=== PATIENT | female | born 1985 | race Two or more races ===

== ENCOUNTER → 2025-04-23 | Day surgery (SDC) | payer MEDICAID ==
[2025-04-22 14:14] LABS: Hemoglobin 12.3 g/dL (12.2-16.2); Nucleated Red Blood Cells % 0.1 %
[2025-04-22 14:17] LABS: Hematocrit 37.8 % (36.0-46.0); Mean Corpuscular Hemoglobin 26.5 pg (28.0-32.0); Mean Corpuscular Volume 81.2 fL (80.0-100.0)
[2025-04-22 14:30] LABS: INR 1.05 (0.9-1.15); Partial Thromboplastin Time 39.6 SEC (24.5-34.5); Prothrombin Time 11.1 sec (9.3-11.8)
[2025-04-22 14:31] LABS: Urine Protein, UAD Negative (Negative)
[2025-04-22 14:36] LABS: Alanine Aminotransferase 23 U/L (7-40); Albumin 4.4 g/dL (3.2-4.8); Alkaline Phosphatase 73 U/L (46-116); Anion Gap 9 (5-15); BUN/Creatinine Ratio 12.1 (10.0-20.0); Bilirubin, Total 0.4 mg/dL (0.2-1.0); Blood Urea Nitrogen 7 mg/dL (9-23); Calcium 9.3 mg/dL (8.7-10.4); Carbon Dioxide 26 mmol/L (20-31); Chloride 105 mmol/L (98-107); Glucose 73 mg/dL (74-106); Potassium 3.9 mmol/L (3.5-5.1); Sodium 140 mmol/L (136-145); Total Protein 7.4 g/dL (5.7-8.2)
[~2025-04-23] VITALS: Ht 152.4 cm; Wt 44.5 kg
[~2025-04-23] MED LIST: CHOL25CH3 PO; FOLI800T16 PO; HYDR-4491 PO; LIDOCAINE 2% (LOCAL ANESTH.) PF 5ml SDV ONE; PRE1T PO; PROPOFOL 10 MG/ML 20 ML IV ONE
--- NOTE | 2025-04-23 11:24 | DVHHP2 ---
GI H&P Pre-Op Assessment Date: 04/23/25 Chief complaint: Vomiting and melena HPI: per clinic note Past medical history: per clinic note Past surgical history: per clinic note Family history: per clinic note Physical exam: General: NAD, AAOX3 HEENT: PERRL, no scleral icterus, normal hearing, gums without lesions or bleeding, oropharynx clear without erythema or exudate. Neck: Supple without enlargement of the thyroid, or lymphadenopathy. Chest: Normal size and shape, no tenderness, lung bowie clear to auscultation and percussion, nonlabored breathing. Heart: RRR, no murmur Abdomen: non-distended, no tenderness to palpation, +BS, no hepatosplenomegaly Extremities: no edema Neurological: CN II-XII intact, sensation intact in all extremities, 5+ strength in all extremities Skin: No rashes, No jaundice Assessment: - Vomiting and melena Plan: - EGD - Risks (bleeding, infection, perforation, reaction to sedation medications and cardiopulmonary arrest) and benefit of the procedure were explained to patient. Patient agrees to undergo the procedure. RADU PEREZ MD Apr 23, 2025 11:24
--- NOTE | 2025-04-23 11:37 | DVHOP2 ---
Operative Report DATE OF OPERATION: 04/23/25 PROCEDURE: Upper Endoscopy. PREOPERATIVE INDICATION: The patient is a 39 -year-old female undergoing endoscopy for vomiting and melena. POSTOPERATIVE DIAGNOSES: 1. Mild gastritis. 2. Gastric erosion at the body of the stomach. PROCEDURE PERFORMED BY: Tj Velazquez SCOPE: Olympus videoendoscope. ASA CLASS: 2 PREOPERATIVE MEDICATIONS: MAC with Avni DOUGLAS PROCEDURE IN DETAIL: After obtaining an informed consent, the patient was placed on her back. The patient was then sedated with the above medications. A bite block was placed between her teeth. The endoscope was then passed through the oropharynx, into the esophagus, and through the stomach and pylorus up to the second and third part of the duodenum. The duodenum was normal in appearance. There was mild gastritis. There was a gastric erosion in the body of the stomach. Gastric biopsy obtained using cold forceps. The GE junction was normal in appearance at 33 cm. The esophagus was normal in appearance. The endoscope was then withdrawn. The patient tolerated the procedure well without difficulty. COMPLICATIONS : None SPECIMENS: Gastric biopsies DISPOSITION: D/C to home PLAN: 1. Await for biopsy result 2. Continue with omeprazole TJ VELAZQUEZ MD Apr 23, 2025 11:37
--- NOTE | 2025-04-23 11:37 | DVHDS2 ---
Physician Discharge Progress N Final Diagnosis: Gastritis, gastric erosion Operations or Procedures: Operations or Procedures EGD with cold biopsies Condition on Discharge: Good Disposition: Home Discharge Instructions: Diet: Regular Activity: No Restrictions, As Tolerated Medications: Resume previous home medications Follow Up Care: Discharge Statement: "Patient was advised to return to the ER or call 911 if any headaches, dizziness, shortness of breath, chest pain, abdominal pain, bleeding, fevers, or worsening of medical condition. Patient was counseled about treatment plan, medications, possible side effects, patientverbalized understanding. All questions were answered to the best of my ability. This discharge took greater then 30 minutes in planning, reviewing do cumentation, counseling the patient, and discussing with other team members." RADU PEREZ MD Apr 23, 2025 11:37
[2025-04-23 11:40] VITALS: PULSE 70; RESP 11; TEMP 97.1; O2SAT 100
[2025-04-23 12:15] VITALS: BP 140/83; PULSE 58; RESP 15; O2SAT 100
== END | disposition home or self-care (01) ==
LOC: GI 10:16
PROVIDERS: ATTEND Internal Medicine Gastroenterology
DX: R11.10 Vomiting, unspecified (principal); K21.9 Gastro-esophageal reflux disease without esophagitis; K25.4 Chronic or unspecified gastric ulcer with hemorrhage; C7A.8 Other malignant neuroendocrine tumors; K29.50 Unspecified chronic gastritis without bleeding; K31.A0 Gastric intestinal metaplasia, unspecified; M06.9 Rheumatoid arthritis, unspecified
CPT/HCPCS: 36415; 43239; 80053; 81001; 81025; 85025; 85610; 85730; 88305; 88342; J2003; J2704; J7030